=== PATIENT | male | born 1980 | race Caucasian/White ===

== ENCOUNTER 2019-05-20 16:00 | Emergency (ER) | payer OTHER ==
[2019-05-20 16:21] VITALS: BP 144/91; PULSE 98; TEMP 98.7; BMI 28.2
[2019-05-20] MEDS ORDERED: ACETAMINOPHEN 325 MG TABLET (FP) PO ONE (16:36)
[2019-05-20] MEDS ORDERED: ACETAMINOPHEN 325 MG TABLET (FP) ONE (16:44)
[2019-05-20] MEDS ORDERED: IBUPROFEN 400 MG TABLET (FP) PO ONE (16:47)
[2019-05-20] MEDS ORDERED: IBUPROFEN 600 MG TABLET (FP) PO ONE (16:48)
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
== END 2019-05-20 18:12 | disposition home or self-care (01) ==
LOC: FER 16:00 → SUPCPDRO 16:00 → FER 18:12
DX: M54.5 Low back pain (principal); M79.7 Fibromyalgia; V43.62XA Car passenger injured in collision with other type car in traffic accident, initial encounter; Y93.89 Activity, other specified; Y92.414 Local residential or business street as the place of occurrence of the external cause
CPT/HCPCS: 72100-TC-FY; 73070-TC-LT-FY; 99282-25